=== PATIENT | female | born 1970 | race Two or more races ===

== ENCOUNTER 2021-11-02 06:28 | Outpatient (CLI) | payer OTHER | END 2021-11-02 06:29 | disposition home or self-care (01) | LOC: LAB 06:28 | DX: I10 Essential (primary) hypertension (principal) ==

== ENCOUNTER → 2021-12-19 06:48 | Outpatient (CLI) | payer OTHER | END | disposition home or self-care (01) | LOC: LAB 06:48 | PROVIDERS: ATTEND Obstetrics & Gynecology | DX: N83.202 Unspecified ovarian cyst, left side (principal) ==

== ENCOUNTER 2022-01-09 08:18 | Outpatient (CLI) | payer OTHER | END 2022-01-09 08:29 | disposition home or self-care (01) | LOC: LAB 08:18 | PROVIDERS: ATTEND Obstetrics & Gynecology | DX: N83.202 Unspecified ovarian cyst, left side (principal); E03.3 Postinfectious hypothyroidism ==

== ENCOUNTER 2022-07-18 08:13 | Outpatient (CLI) | payer OTHER | END 2022-07-18 08:14 | disposition home or self-care (01) | LOC: LAB 08:13 | PROVIDERS: ATTEND Internal Medicine | DX: E03.9 Hypothyroidism, unspecified (principal); E11.9 Type 2 diabetes mellitus without complications; E78.5 Hyperlipidemia, unspecified; D64.9 Anemia, unspecified; N39.0 Urinary tract infection, site not specified; E55.9 Vitamin D deficiency, unspecified ==

== ENCOUNTER 2022-11-18 07:33 | Outpatient (CLI) | payer OTHER | END 2022-11-18 07:38 | disposition home or self-care (01) | LOC: LAB 07:33 | PROVIDERS: ATTEND Internal Medicine | DX: E03.9 Hypothyroidism, unspecified (principal); D64.89 Other specified anemias; E11.9 Type 2 diabetes mellitus without complications; N35.92 Unspecified urethral stricture, female; K57.92 Diverticulitis of intestine, part unspecified, without perforation or abscess without bleeding ==

== ENCOUNTER 2023-01-13 09:32 | Outpatient (CLI) | payer OTHER | END 2023-01-13 09:35 | disposition home or self-care (01) | LOC: RAD 09:32 | DX: M54.2 Cervicalgia (principal); M54.50 Low back pain, unspecified; M54.40 Lumbago with sciatica, unspecified side ==

== ENCOUNTER → 2024-08-29 06:32 | Outpatient (CLI) | payer OTHER ==
[2024-08-29 07:42] LABS: HEMATOCRIT 40.1 % (36.0-45.00); HEMOGLOBIN 13.6 g/dL (12.0-15.00); MEAN CELL VOLUME 86.1 fL (80.00-100.00); MEAN CORPUSCULAR HEMOGLOBIN 29.2 pg (27.00-32.0); MEAN CORPUSCULAR HGB CONC 33.9 g/dl (32.0-36.0); PLATELET COUNT 215 K/uL (150-450); RED BLOOD COUNT 4.66 M/uL (4.00-6.00); RED CELL DISTRIBUTION WIDTH 14.3 % (11.5-14.5)
[2024-08-29 07:49] LABS: URINE APPEARANCE Clear; URINE BILIRRUBIN Negative (NEGATIVE); URINE BLOOD Negative; URINE COLOR Yellow; URINE GLUCOSE Negative (NEGATIVE); URINE KETONE Negative (NEGATIVE); URINE LEUKOCYTE Negative; URINE NITRATE Negative; URINE PROTEIN Negative (NEGATIVE); URINE UROBILINOGEN 0.2 E.U./dl
[2024-08-29 07:58] LABS: URINE BACTERIA 154.1 uL (0.0-1933); URINE EPITHELIAL CELLS 7.2 uL (0.0-38.8); URINE RBC 2.9 uL (0.0-20.8)
[2024-08-29 08:01] LABS: URINE WBC 1.1 uL (0.0-23.2)
[2024-08-29 08:36] LABS: ALBUMIN 3.8 gm/dL (3.4-5.0); BILIRUBIN TOTAL 0.41 mg/dL (0.3-1.2); CALCIUM 9.5 mg/dL (8.5-10.1); CHOL HDL RATIO 2.9 (0-5.0); CREATININE SERUM 0.86 mg/dL (0.55-1.02); GFR 68.51; GLOBULINA 3.2 G/DL (2.4-3.5); POTASSIUM 3.87 mEq/L (3.5-5.1); T4 TOTAL 7.72 UG/DL (4.8-13.9); TSH 2.83 uIU/mL (0.358-3.74)
[2024-08-29 09:57] LABS: T3 TOTAL 1.07 ng/ml (0.846-2.02); VITAMIN D3 25 HYDROXY 40.59 ng/ml (30-120)
== END | disposition home or self-care (01) ==
LOC: LAB 06:32
PROVIDERS: ATTEND Internal Medicine
DX: E03.9 Hypothyroidism, unspecified (principal); E11.9 Type 2 diabetes mellitus without complications; E55.9 Vitamin D deficiency, unspecified; D64.9 Anemia, unspecified; N39.0 Urinary tract infection, site not specified

== ENCOUNTER 2025-02-27 07:26 | Outpatient (CLI) | payer OTHER ==
[2025-02-27 08:04] LABS: BASO % 0.8 % (0.1-1.2); EOS # 0.11 (0.04-0.54); EOS % 1.8 % (0.7-7.0); HEMATOCRIT 39.2 % (34.1-44.9); HEMOGLOBIN 12.8 g/dL (11.2-15.7); LYMPH # 1.64 (1.18-3.74); MEAN CORPUSCULAR HEMOGLOBIN 28.1 pg (25.6-32.2); MONO # 0.57 (0.24-0.82); MONO % 9.4 % (4.7-12.5); NEUT # 3.68 (1.56-6.13); NEUT % 60.5 % (34.0-71.1); PLATELET COUNT 223 K/uL (163-369); RED BLOOD COUNT 4.56 M/uL (3.93-5.22); RED CELL DISTRIBUTION WIDTH 13.7 % (11.6-14.4)
[2025-02-27 08:40] LABS: URINE APPEARANCE Clear; URINE BILIRRUBIN Negative (NEGATIVE); URINE BLOOD Negative; URINE COLOR Yellow; URINE GLUCOSE Negative (NEGATIVE); URINE KETONE Negative (NEGATIVE); URINE LEUKOCYTE Negative; URINE NITRATE Negative; URINE PROTEIN Negative (NEGATIVE); URINE UROBILINOGEN 0.2 E.U./dl
[2025-02-27 08:45] LABS: URINE BACTERIA 182.3 uL (0.0-1933); URINE EPITHELIAL CELLS 5.3 uL (0.0-38.8); URINE RBC 8.1 uL (0.0-20.8); URINE WBC 2.2 uL (0.0-23.2)
[2025-02-27 09:37] LABS: ob NEGATIVE (NEGATIVE)
[2025-02-27 09:59] LABS: ALBUMIN 3.5 gm/dL (3.4-5.0); BILIRUBIN TOTAL 0.43 mg/dL (0.3-1.2); CALCIUM 9.4 mg/dL (8.5-10.1); CHOL HDL RATIO 2.6 (0-5.0); CREATININE SERUM 0.71 mg/dL (0.55-1.02); GFR 85.46; GLOBULINA 3.3 G/DL (2.4-3.5); POTASSIUM 4.25 mEq/L (3.5-5.1); TOTAL PROTEIN 6.8 gm/dL (6.4-8.2); TSH 2.71 uIU/mL (0.358-3.74)
== END 2025-02-27 07:37 | disposition home or self-care (01) ==
LOC: LAB 07:26
PROVIDERS: ATTEND Internal Medicine
DX: E03.9 Hypothyroidism, unspecified (principal); D64.9 Anemia, unspecified; E11.9 Type 2 diabetes mellitus without complications; N39.0 Urinary tract infection, site not specified; E55.9 Vitamin D deficiency, unspecified